=== PATIENT | female | born 1935 | race Two or more races ===

== ENCOUNTER 2019-02-13 18:07 | Emergency (ER) | payer BC, OTHER ==
[~2019-02-13] VITALS: Ht 165.1 cm; Wt 68.0 kg
[2019-02-13 18:36] VITALS: BP 129/69
--- NOTE | 2019-02-13 19:05 | NUR ---
Called NO response
--- NOTE | 2019-02-13 19:07 | NUR ---
Called No response - Possibly [facility] "she Left". Dr Schwarz Notified
== END 2019-02-13 19:11 | disposition home or self-care (01) ==
LOC: ER 18:07
DX: Z53.21 Procedure and treatment not carried out due to patient leaving prior to being seen by health care provider (principal); R19.7 Diarrhea, unspecified; R53.1 Weakness; I10 Essential (primary) hypertension; E11.9 Type 2 diabetes mellitus without complications; Z98.890 Other specified postprocedural states